=== PATIENT | female | born 1960 | race Hispanic/Latino ===

== ENCOUNTER → 2025-01-27 | Outpatient (CLI) | payer OTHER, MEDICAID ==
[2025-01-27 09:53] LABS: CREATININE 0.6 mg/dL (0.5-1.0)
== END | disposition home or self-care (01) ==
LOC: LAB 09:09
PROVIDERS: ATTEND Internal Medicine
DX: R59.0 Localized enlarged lymph nodes (principal)
CPT/HCPCS: 36415; 82565; 84520

== ENCOUNTER → 2025-01-30 | Outpatient (CLI) | payer OTHER, MEDICAID ==
[~2025-01-30] MED LIST: IOHEXOL 350 MG/ML 100ML INFUS..BTL IV ONE
--- NOTE | 2025-01-30 16:14 | HMCIMG ---
CT ABDOMEN/PELVIS W/CONTRAST HISTORY: Right lower quadrant lump COMPARISON: None TECHNIQUE: Multiple sequential axial images of the abdomen and pelvis were obtained from the dome of the diaphragm through symphysis pubis. Patient was given 100 cc of Omnipaque through intravenous route. Oral contrast was given. FINDINGS: No pleural effusion is seen bilaterally. There is no evidence of parenchymal disease or pulmonary nodule of the visualized lower lungs. Degenerative changes of the thoracolumbar spine are present. The heart is not enlarged. The liver, spleen, adrenal glands and pancreas are unremarkable. There is no evidence of hydronephrosis bilaterally. No evidence of renal stone is seen. Fecal material is seen in the colon. There are normal size retroperitoneal and mesenteric lymph nodes. No ascites is seen. Atherosclerotic changes are present. No bile obstruction seen. There is simple left adnexal cyst measuring 7 x 6.5 cm may be related to ovarian cyst versus cystic neoplasm not excluded. Pelvic sidewalls are symmetric bilaterally. Bladder is well distended without wall thickening. IMPRESSION: 1. Fecal material is seen in the colon. Left adnexal cystic structure measuring [address] was performed with one or more following dose reduction techniques: automated exposure control, adjustment of the mA and kv according to patient's size, or use of a iterative reconstruction technique.
== END | disposition home or self-care (01) ==
LOC: RAH 07:36
PROVIDERS: ATTEND Internal Medicine
DX: R59.0 Localized enlarged lymph nodes (principal); M47.815 Spondylosis without myelopathy or radiculopathy, thoracolumbar region
CPT/HCPCS: 74177; Q9967